=== PATIENT | female | born 1945 | race Caucasian/White ===

== ENCOUNTER 2017-10-26 14:46 | Inpatient (IN) | payer MEDICARE, OTHER ==
[2017-10-26] VITALS (7 sets, daily range): BP systolic 93–140; BP diastolic 50–64
[~2017-10-26] VITALS: Ht 152.4 cm; Wt 67.0 kg
[~2017-10-26 14:46] MED LIST: FURO40TA4 PO; GABA-530 PO; HYDR-565 PO; ONDA4TAB12 PO; PANT20TA3 PO; POLY119P2 PO; PROC-8 PO; SODI650T29 PO; atropine 0.1 mg/ml 5ml syringe ONE; calcium chloride 100 MG/1 ML inj IV ONE; naloxone 0.4 mg/ml inj ONE; sodium bicarbonate (8.4%) 1 mEq/ml syringe ONE
[2017-10-26] MEDS ORDERED: DOBUTamine-DoBUTrex 500mg/D5W 250 ML IV ONE (14:59)
[2017-10-26] MEDS ORDERED: levoFLOXACIN-Levaquin 750MG/D5 150 ML IV ONE (15:20)
[2017-10-26] MEDS ORDERED: CefTRIAXone 2gm/NS 100ml IVPB 100 ML IV ONE (15:20)
[2017-10-26] MEDS ORDERED: normal saline 1000ML IV soln IV ONE (15:20)
[2017-10-26 15:25] LABS: BASOPHILS % (AUTO) 0.2 % (0-1); EOSINOPHILS % (AUTO) 0.2 % (0-6); HEMATOCRIT 32.3 % (35.0-45.0); HEMOGLOBIN 10.4 g/dl (12.0-16.0); LYMPHOCYTES # (AUTO) 3.9 X10'3 (1.1-4.8); LYMPHOCYTES % (AUTO) 22.4 % (21-51); MEAN CORPUSCULAR HEMOGLOBIN 30.2 PG (27.0-31.0); MEAN CORPUSCULAR HGB CONC 32.2 % (33.0-36.5); MEAN CORPUSCULAR VOLUME 93.7 FL (78-98); MEAN PLATELET VOLUME 8.8 FL (7.4-10.4); MONOCYTES # (AUTO) 0.9 X10'3 (0-0.9); NEUTROPHILS # (AUTO) 12.5 X10'3 (1.8-7.7); NEUTROPHILS % (AUTO) 72.2 % (42-75); PLATELET COUNT 123 X10'3 (140-440); RED BLOOD COUNT 3.45 X10'6 (4.20-5.60); RED CELL DISTRIBUTION WIDTH 13.6 % (11.5-14.5); WHITE BLOOD COUNT 17.3 X10'3 (4.5-11.0)
[2017-10-26] MEDS ORDERED: midazolam 100mg in NS 100ml 100 ML IV PRN (15:30)
[2017-10-26] MEDS ORDERED: acetaminophen 325mg tablet PO PRN ×2 (15:30)
[2017-10-26] MEDS ORDERED: ipratropium/albuterol 3ml nebule NEB PRN (15:30)
[2017-10-26] MEDS ORDERED: midazolam 2 mg/2 ml injection IV ONE (15:30)
[2017-10-26] MEDS ORDERED: fentaNYL/PF 50MCG/1 ML 2ML syringe IV PRN (15:30)
[2017-10-26] MEDS ORDERED: CISatracurium besylate inj. 200 MG in normal saline 250ml IV soln 180 ML IV PRN (15:30)
[2017-10-26] MEDS ORDERED: ondansetron/PF 4mg/2ml inj IV PRN (15:30)
[2017-10-26] MEDS ORDERED: potassium Cl 40MEQ/250ML bag 250 ML IV PRN (15:30)
[2017-10-26] MEDS ORDERED: potassium Cl 20 mEq SR tablet PO PRN ×2 (15:30)
[2017-10-26] MEDS ORDERED: azithromycin/NS 500mg/250ml 250 ML IV SCH (15:30)
[2017-10-26] MEDS ORDERED: potassium Cl 40MEQ/NS 500ml 500 ML IV PRN ×2 (15:30)
[2017-10-26] MEDS ORDERED: FENTANYL-0.9 % NACL/PF 100 ML IV PRN (15:30)
[2017-10-26] MEDS ORDERED: CISatracurium **Bolus** 2 mg/ml inj IV PRN (15:30)
[2017-10-26 15:52] LABS: INR 1.2 INR; PARTIAL THROMBOPLASTIN TIME 52 SECONDS (22-32); PROTHROMBIN TIME 11.9 SECONDS (9.0-12.0)
[2017-10-26 15:56] LABS: ALANINE AMINOTRANSFERASE 214 U/L (12-78); ALBUMIN 2.1 G/DL (3.4-5.0); ALBUMIN/GLOBULIN RATIO 0.6 (1.1-1.5); ALKALINE PHOSPHATASE 94 IU/L (46-116); ANION GAP 11 (8-16); ASPARTATE AMINO TRANSFERASE 266 U/L (10-37); BILIRUBIN,TOTAL 0.4 MG/DL (0.1-1.0); BLOOD UREA NITROGEN 41 MG/DL (7-18); BUN/CREATININE RATIO 17.7 (6.6-38.0); CALCIUM 7.2 MG/DL (8.5-10.1); CHLORIDE 106 MMOL/L (99-107); CREATININE 2.32 MG/DL (0.40-0.90); GLUCOSE 243 MG/DL (70-104); POTASSIUM 5.2 MMOL/L (3.5-5.1); SODIUM 139 MMOL/L (135-145); TOTAL CARBON DIOXIDE 21.7 MMOL/L (24-32); TOTAL PROTEIN 5.9 G/DL (6.4-8.2); eGFR 21 ML/MIN
[2017-10-26 16:05] LABS: MAGNESIUM 2.1 MG/DL (1.5-2.4)
[2017-10-26] MEDS ORDERED: vancomycin/NS 1 GM ADD-VANTAGE 250 ML IV PRN (16:25)
[2017-10-26 16:30] LABS: ABG BASE EXCESS -12.8 mmol/L (-2.0-3.0); ABG HCO3 15.1 mmol/L (22.0-26.0); ABG PH (T) 7.153 (7.350-7.450); ABG PO2 (T) 323.2 mmHg (83-108); ALLEN'S TEST Positive; FCOHb 0.3 % (0.5-1.5); FMetHb 0.2 % (0.3-1.12); FO2Hb 98.5 % (94-100); TOTAL HEMOGLOBIN 7.7 G/dl (12.0-16.0)
[2017-10-26] MEDS ORDERED: vancomycin/NS 1 GM ADD-VANTAGE 250 ML IV ONE (16:50)
[2017-10-26] MEDS ORDERED: GABA100C PO (18:08)
[2017-10-26] MEDS ORDERED: PROC10TA PO (18:08)
[2017-10-26] MEDS ORDERED: POLY255P2 PO (18:08)
[2017-10-26] MEDS ORDERED: PANT20TA2 PO (18:08)
[2017-10-26] MEDS ORDERED: ONDA4TAB9 PO (18:08)
[2017-10-26] MEDS ORDERED: SODI325T PO (18:08)
[2017-10-26] MEDS: piperacillin-tazo 2.25gm/50ml 50 ML IV SCH ×2 (19:25→20:00)
[2017-10-26] MEDS: famotidine/PF 10 mg/ml inj IV SCH (19:25)
[2017-10-26] MEDS: normal saline 1000ml 1,000 ML IV SCH (19:25)
[2017-10-26] MEDS: lactobacillus rhamnosus 10,000 MMU CELLS/CAPSULE PO SCH (19:26)
[2017-10-26] MEDS: docusate sod 100mg capsule PO SCH (19:26)
[2017-10-26] MEDS: ipratropium/albuterol 3ml nebule NEB SCH ×2 (19:37→22:39)
[2017-10-26 20:25] LABS: ABG BASE EXCESS -9.9 mmol/L (-2.0-3.0); ABG HCO3 17.6 mmol/L (22.0-26.0); ABG OXYGEN SATURATION 97.2 % (95-98); ABG PCO2 (T) 37.7 mmHg (32.0-45.0); ABG PH (T) 7.263 (7.350-7.450); ABG PO2 (T) 86.3 mmHg (83-108); ALLEN'S TEST Positive; FCOHb 0.3 % (0.5-1.5); FMetHb 0.3 % (0.3-1.12); FO2Hb 96.6 % (94-100); MINUTE VOLUME 9 L/min; PATIENT TEMPERATURE 32.6; PEEP 5 cm H2O; RESPIRATORY RATE 20 b/min; RESPIRATORY RATE (OBSERVED) 22 b/min; TIDAL VOLUME 350 mL; TOTAL HEMOGLOBIN 10.6 G/dl (12.0-16.0)
[2017-10-26 20:31] LABS: OXYGEN SATURATION (MIXED VEN) 56.7 % (60-80)
[2017-10-26 20:44] LABS: ALBUMIN 2.1 G/DL (3.4-5.0); ANION GAP 11 (8-16); BLOOD UREA NITROGEN 41 MG/DL (7-18); CALCIUM 6.9 MG/DL (8.5-10.1); CHLORIDE 109 MMOL/L (99-107); CREATININE 1.86 MG/DL (0.40-0.90); GLUCOSE 146 MG/DL (70-104); MAGNESIUM 1.7 MG/DL (1.5-2.4); SODIUM 142 MMOL/L (135-145); TOTAL CARBON DIOXIDE 22.3 MMOL/L (24-32); eGFR 27 ML/MIN
[2017-10-26 20:58] LABS: TROPONIN I 0.31 NG/ML (0.0-0.05)
[2017-10-26] MEDS: DOBUTamine-DoBUTrex 500mg/D5W 250 ML IV PRN ×2 (23:28→23:56)
[2017-10-26] MEDS: NORepinephrine 8mg/ 250ml NS 250 ML IV SCH (23:46)
[2017-10-26] MEDS: mineral oil/petrolatum ophthal oint EACHEYE SCH (23:59)
[2017-10-27] VITALS (23 sets, daily range): BP systolic 81–160; BP diastolic 43–64
[2017-10-27 00:15] LABS: CLARITY,URINE CLEAR (Clear); COLOR,URINE YELLOW (Yellow); GLUCOSE, URINE NEGATIVE (Neg); KETONES,URINE NEGATIVE (Neg); LEUKOCYTE ESTERASE ,URINE NEGATIVE (Neg); NITRITES, URINE NEGATIVE (Neg); OCCULT BLOOD,URINE LARGE (Neg); PH,URINE 6.5 (4.8-8.0); PROTEIN,URINE 100 mg/dl (Neg); UROBILINOGEN,URINE 0.2 E.U/dL (0.2-1.0)
[2017-10-27 00:30] LABS: UA COLLECTION TYPE VOIDED
[2017-10-27 00:33] LABS: WBC,URINE 0-4 /HPF (0-4)
[2017-10-27 00:34] LABS: BACTERIA,URINE NONE SEEN /HPF (Neg); MUCUS STRANDS NONE SEEN /LPF (Neg); SQUAMOUS EPITHELIAL CELL,UR MANY /LPF (FEW); TRANSITIONAL EPI CELLS,URINE FEW /HPF
[2017-10-27] MEDS: piperacillin-tazo 2.25gm/50ml 50 ML IV SCH ×4 (02:47→19:58)
[2017-10-27] MEDS: VANCOMYCIN LEVEL IV SCH (03:00)
[2017-10-27] MEDS: ipratropium/albuterol 3ml nebule NEB SCH ×6 (03:17→23:05)
[2017-10-27 03:35] LABS: ABG BASE EXCESS -8.2 mmol/L (-2.0-3.0); ABG HCO3 17.1 mmol/L (22.0-26.0); ABG OXYGEN SATURATION 98.9 % (95-98); ABG PCO2 (T) 28.3 mmHg (32.0-45.0); ABG PH (T) 7.378 (7.350-7.450); ABG PO2 (T) 152.9 mmHg (83-108); ALLEN'S TEST Positive; FCOHb 0.3 % (0.5-1.5); FO2Hb 98.6 % (94-100); MINUTE VOLUME 8 L/min; PATIENT TEMPERATURE 32.5; PEEP 5 cm H2O; RESPIRATORY RATE 20 b/min; RESPIRATORY RATE (OBSERVED) 20 b/min; TIDAL VOLUME 350 mL; TOTAL HEMOGLOBIN 10.9 G/dl (12.0-16.0)
[2017-10-27 03:35] LABS: OXYGEN SATURATION (MIXED VEN) 75.7 % (60-80); PO2 MIXED VENOUS (TEMP COR) 29.7 mmHg (35-46)
[2017-10-27 03:46] LABS: BASOPHILS % (AUTO) 0 % (0-1); HEMATOCRIT 30.4 % (35.0-45.0); HEMOGLOBIN 10.2 g/dl (12.0-16.0); LYMPHOCYTES # (AUTO) 0.5 X10'3 (1.1-4.8); MEAN CORPUSCULAR HEMOGLOBIN 30.3 PG (27.0-31.0); MEAN CORPUSCULAR HGB CONC 33.4 % (33.0-36.5); MEAN CORPUSCULAR VOLUME 90.7 FL (78-98); MEAN PLATELET VOLUME 7.5 FL (7.4-10.4)
[2017-10-27 03:50] LABS: ALANINE AMINOTRANSFERASE 242 U/L (12-78); ALBUMIN 2.1 G/DL (3.4-5.0); ALBUMIN/GLOBULIN RATIO 0.6 (1.1-1.5); ALKALINE PHOSPHATASE 77 IU/L (46-116); ANION GAP 11 (8-16); ASPARTATE AMINO TRANSFERASE 539 U/L (10-37); BILIRUBIN,TOTAL 0.4 MG/DL (0.1-1.0); BLOOD UREA NITROGEN 44 MG/DL (7-18); BUN/CREATININE RATIO 25.7 (6.6-38.0); CALCIUM 7.2 MG/DL (8.5-10.1); CHLORIDE 112 MMOL/L (99-107); CREATININE 1.71 MG/DL (0.40-0.90); GLUCOSE 128 MG/DL (70-104); MAGNESIUM 1.7 MG/DL (1.5-2.4); PHOSPHORUS 4.4 MG/DL (2.3-4.5); POTASSIUM 3.3 MMOL/L (3.5-5.1); SODIUM 144 MMOL/L (135-145); TOTAL CARBON DIOXIDE 20.6 MMOL/L (24-32); TOTAL PROTEIN 5.8 G/DL (6.4-8.2); eGFR 29 ML/MIN
[2017-10-27 03:51] LABS: EOSINOPHILS % (AUTO) 0 % (0-6); LYMPHOCYTES % (AUTO) 2.9 % (21-51); MONOCYTES # (AUTO) 0.2 X10'3 (0-0.9); MONOCYTES % (AUTO) 1.1 % (2-12); NEUTROPHILS # (AUTO) 15.4 X10'3 (1.8-7.7); PLATELET COUNT 61 X10'3 (140-440); RED BLOOD COUNT 3.35 X10'6 (4.20-5.60); RED CELL DISTRIBUTION WIDTH 13.6 % (11.5-14.5)
[2017-10-27] MEDS ORDERED: potassium Cl 40MEQ/250ML bag 250 ML IV ONE (04:00)
[2017-10-27] MEDS: mineral oil/petrolatum ophthal oint EACHEYE SCH ×5 (04:08→19:58)
[2017-10-27] MEDS: potassium Cl 40MEQ/250ML bag 250 ML IV PRN (04:12)
[2017-10-27] MEDS: normal saline 1000ml 1,000 ML IV SCH ×2 (04:50→18:30)
[2017-10-27] MEDS: lactobacillus rhamnosus 10,000 MMU CELLS/CAPSULE PO SCH ×2 (07:50→18:00)
[2017-10-27] MEDS: famotidine/PF 10 mg/ml inj IV SCH ×2 (07:50→19:58)
[2017-10-27] MEDS: enoxaparin 40mg/0.4ml syringe SUBCUT SCH (07:51)
[2017-10-27] MEDS: docusate sod 100mg capsule PO SCH ×2 (07:52→19:58)
[2017-10-27] MEDS ORDERED: cefTRIAXone 1g/NS 100ml IVPB 100 ML IV SCH (08:00)
[2017-10-27] MEDS ORDERED: levoFLOXACIN-Levaquin 750MG/D5 150 ML IV SCH (08:00)
[2017-10-27 08:02] LABS: INR 1.3 INR; PARTIAL THROMBOPLASTIN TIME 44 SECONDS (22-32); PROTHROMBIN TIME 13.3 SECONDS (9.0-12.0)
[2017-10-27 08:10] LABS: ALBUMIN 1.9 G/DL (3.4-5.0); ANION GAP 11 (8-16); BLOOD UREA NITROGEN 41 MG/DL (7-18); BUN/CREATININE RATIO 25.9 (6.6-38.0); CALCIUM 6.8 MG/DL (8.5-10.1); CHLORIDE 115 MMOL/L (99-107); CREATININE 1.58 MG/DL (0.40-0.90); GLUCOSE 151 MG/DL (70-104); MAGNESIUM 1.6 MG/DL (1.5-2.4); SODIUM 145 MMOL/L (135-145); TOTAL CARBON DIOXIDE 19.5 MMOL/L (24-32); eGFR 32 ML/MIN
[2017-10-27 08:26] LABS: TROPONIN I 0.38 NG/ML (0.0-0.05)
[2017-10-27 09:29] LABS: PLATELET ESTIMATE DECREASED; TOTAL CELLS COUNTED 100
[2017-10-27 09:41] LABS: C DIFF ANTIGEN NEGATIVE (NEGATIVE); C DIFF SPECIMEN=DIARRHEA? ACCEPTABLE; C DIFFICILE TOXINS A&B NEGATIVE (Neg)
[2017-10-27 10:46] LABS: OXYGEN SATURATION (MIXED VEN) 67.1 % (60-80); PO2 MIXED VENOUS (TEMP COR) 24.7 mmHg (35-46)
[2017-10-27 10:55] LABS: ABG BASE EXCESS -9.9 mmol/L (-2.0-3.0); ABG OXYGEN SATURATION 95.9 % (95-98); ABG PO2 (T) 59.2 mmHg (83-108); FCOHb 0.3 % (0.5-1.5); FMetHb 0.3 % (0.3-1.12); FO2Hb 95.3 % (94-100); MINUTE VOLUME 7 L/min; PATIENT TEMPERATURE 32.2; PEEP 5 cm H2O; RESPIRATORY RATE 20 b/min; RESPIRATORY RATE (OBSERVED) 19 b/min; TIDAL VOLUME 350 mL; TOTAL HEMOGLOBIN 10.8 G/dl (12.0-16.0)
[2017-10-27] MEDS ORDERED: DOBUTamine-DoBUTrex 500mg/D5W 250 ML IV PRN (11:00)
[2017-10-27 11:05] LABS: CLARITY,URINE CLEAR (Clear); COLOR,URINE YELLOW (Yellow); GLUCOSE, URINE NEGATIVE (Neg); KETONES,URINE NEGATIVE (Neg); LEUKOCYTE ESTERASE ,URINE NEGATIVE (Neg); NITRITES, URINE NEGATIVE (Neg); OCCULT BLOOD,URINE LARGE (Neg); PROTEIN,URINE 30 mg/dl (Neg); UROBILINOGEN,URINE 0.2 E.U/dL (0.2-1.0)
[2017-10-27 11:09] LABS: UA COLLECTION TYPE FOLEY CATH
[2017-10-27 11:14] LABS: WBC,URINE 0-4 /HPF (0-4)
[2017-10-27 11:15] LABS: BACTERIA,URINE FEW /HPF (Neg); SQUAMOUS EPITHELIAL CELL,UR FEW /LPF (FEW)
[2017-10-27 11:37] LABS: UA EOSINOPHILS NO EOS /HPF
[2017-10-27 15:07] LABS: ALBUMIN 1.9 G/DL (3.4-5.0); ANION GAP 11 (8-16); BLOOD UREA NITROGEN 41 MG/DL (7-18); BUN/CREATININE RATIO 24.8 (6.6-38.0); CHLORIDE 115 MMOL/L (99-107); CREATININE 1.65 MG/DL (0.40-0.90); GLUCOSE 149 MG/DL (70-104); MAGNESIUM 1.7 MG/DL (1.5-2.4); POTASSIUM 3.6 MMOL/L (3.5-5.1); SODIUM 145 MMOL/L (135-145); TOTAL CARBON DIOXIDE 19.4 MMOL/L (24-32); eGFR 31 ML/MIN
[2017-10-27] MEDS: oseltamivir phos 75mg capsule PO SCH ×2 (15:53→23:19)
[2017-10-27 16:21] LABS: ABG BASE EXCESS -9.4 mmol/L (-2.0-3.0); ABG HCO3 15.6 mmol/L (22.0-26.0); ABG OXYGEN SATURATION 93.6 % (95-98); ABG PCO2 (T) 26.1 mmHg (32.0-45.0); ABG PH (T) 7.374 (7.350-7.450); ABG PO2 (T) 50.9 mmHg (83-108); FCOHb 0.4 % (0.5-1.5); FMetHb 0.3 % (0.3-1.12); FO2Hb 92.9 % (94-100); MINUTE VOLUME 7 L/min; PATIENT TEMPERATURE 32.6; PEEP 5 cm H2O; RESPIRATORY RATE 20 b/min; RESPIRATORY RATE (OBSERVED) 19 b/min; TIDAL VOLUME 350 mL
[2017-10-27 16:21] LABS: OXYGEN SATURATION (MIXED VEN) 70.6 % (60-80); PO2 MIXED VENOUS (TEMP COR) 26.1 mmHg (35-46)
[2017-10-27] MEDS ORDERED: mineral oil/petrolatum ophthal oint EACHEYE SCH (20:00)
[2017-10-27 23:06] LABS: ABG BASE EXCESS -9.7 mmol/L (-2.0-3.0); ABG HCO3 15.4 mmol/L (22.0-26.0); ABG OXYGEN SATURATION 95.1 % (95-98); ABG PCO2 (T) 26.5 mmHg (32.0-45.0); ABG PH (T) 7.364 (7.350-7.450); ABG PO2 (T) 63.3 mmHg (83-108); FCOHb 0.3 % (0.5-1.5); FO2Hb 94.8 % (94-100); MINUTE VOLUME 9 L/min; PATIENT TEMPERATURE 33.4; PEEP 5 cm H2O; RESPIRATORY RATE 20 b/min; RESPIRATORY RATE (OBSERVED) 20 b/min; TIDAL VOLUME 350 mL; TOTAL HEMOGLOBIN 11.2 G/dl (12.0-16.0)
[2017-10-28] VITALS (24 sets, daily range): BP systolic 95–130; BP diastolic 37–51
[2017-10-28] MEDS: mineral oil/petrolatum ophthal oint EACHEYE SCH ×6 (00:16→20:33)
[2017-10-28] MEDS: NORepinephrine 8mg/ 250ml NS 250 ML IV SCH ×2 (01:46→15:12)
[2017-10-28] MEDS: piperacillin-tazo 2.25gm/50ml 50 ML IV SCH ×4 (01:53→20:34)
[2017-10-28 02:34] LABS: BASOPHILS % (AUTO) 0 % (0-1); EOSINOPHILS % (AUTO) 0 % (0-6); HEMATOCRIT 27.9 % (35.0-45.0); HEMOGLOBIN 9.2 g/dl (12.0-16.0); LYMPHOCYTES # (AUTO) 0.6 X10'3 (1.1-4.8); LYMPHOCYTES % (AUTO) 3.5 % (21-51); MEAN CORPUSCULAR HEMOGLOBIN 30.1 PG (27.0-31.0); MEAN CORPUSCULAR HGB CONC 32.9 % (33.0-36.5); MEAN CORPUSCULAR VOLUME 91.5 FL (78-98); MEAN PLATELET VOLUME 8.7 FL (7.4-10.4); MONOCYTES # (AUTO) 0.1 X10'3 (0-0.9); MONOCYTES % (AUTO) 0.4 % (2-12); NEUTROPHILS # (AUTO) 16.9 X10'3 (1.8-7.7); NEUTROPHILS % (AUTO) 96.1 % (42-75); RED BLOOD COUNT 3.05 X10'6 (4.20-5.60); RED CELL DISTRIBUTION WIDTH 13.7 % (11.5-14.5); WHITE BLOOD COUNT 17.6 X10'3 (4.5-11.0)
[2017-10-28 02:48] LABS: PLATELET COUNT 46 X10'3 (140-440)
[2017-10-28 02:50] LABS: ALANINE AMINOTRANSFERASE 167 U/L (12-78); ALBUMIN 1.7 G/DL (3.4-5.0); ALBUMIN/GLOBULIN RATIO 0.5 (1.1-1.5); ALKALINE PHOSPHATASE 49 IU/L (46-116); ANION GAP 14 (8-16); ASPARTATE AMINO TRANSFERASE 222 U/L (10-37); BILIRUBIN,TOTAL 0.5 MG/DL (0.1-1.0); BLOOD UREA NITROGEN 40 MG/DL (7-18); BUN/CREATININE RATIO 23.7 (6.6-38.0); CALCIUM 7.1 MG/DL (8.5-10.1); CHLORIDE 116 MMOL/L (99-107); CREATININE 1.69 MG/DL (0.40-0.90); GLUCOSE 165 MG/DL (70-104); MAGNESIUM 1.6 MG/DL (1.5-2.4); POTASSIUM 3.4 MMOL/L (3.5-5.1); SODIUM 147 MMOL/L (135-145); TOTAL CARBON DIOXIDE 17.5 MMOL/L (24-32); TOTAL PROTEIN 5.3 G/DL (6.4-8.2); eGFR 30 ML/MIN
[2017-10-28] MEDS: VANCOMYCIN LEVEL IV SCH (03:00)
[2017-10-28] MEDS: ipratropium/albuterol 3ml nebule NEB SCH ×6 (03:36→23:08)
[2017-10-28 04:26] LABS: ABG BASE EXCESS -9.8 mmol/L (-2.0-3.0); ABG HCO3 15.5 mmol/L (22.0-26.0); ABG OXYGEN SATURATION 95.8 % (95-98); ABG PCO2 (T) 28.1 mmHg (32.0-45.0); ABG PH (T) 7.345 (7.350-7.450); ABG PO2 (T) 69.5 mmHg (83-108); FCOHb 0.3 % (0.5-1.5); FMetHb 0.3 % (0.3-1.12); FO2Hb 95.2 % (94-100); MINUTE VOLUME 9 L/min; PATIENT TEMPERATURE 33.9; PEEP 5 cm H2O; RESPIRATORY RATE 20 b/min; RESPIRATORY RATE (OBSERVED) 20 b/min; TIDAL VOLUME 350 mL; TOTAL HEMOGLOBIN 10.1 G/dl (12.0-16.0)
[2017-10-28 05:02] LABS: TROPONIN I 0.15 NG/ML (0.0-0.05)
[2017-10-28] MEDS: enoxaparin 40mg/0.4ml syringe SUBCUT SCH (08:00)
[2017-10-28] MEDS: normal saline 1000ml 1,000 ML IV SCH ×2 (08:04→22:45)
[2017-10-28] MEDS: lactobacillus rhamnosus 10,000 MMU CELLS/CAPSULE PO SCH ×2 (08:04→17:02)
[2017-10-28] MEDS: docusate sodium 100mg/10ml UD cup PO SCH ×2 (08:04→20:34)
[2017-10-28] MEDS: famotidine/PF 10 mg/ml inj IV SCH ×2 (08:04→20:34)
[2017-10-28] MEDS: oseltamivir phos 75mg capsule PO SCH ×2 (09:47→20:34)
[2017-10-28 10:01] LABS: PLATELET ESTIMATE DECREASED; TOTAL CELLS COUNTED 100
[2017-10-28] MEDS ORDERED: DOBUTamine-DoBUTrex 500mg/D5W 250 ML IV SCH (10:35)
[2017-10-28 10:47] LABS: HEMATOCRIT 28.7 % (35.0-45.0); HEMOGLOBIN 9.5 g/dl (12.0-16.0); MEAN CORPUSCULAR HEMOGLOBIN 30.3 PG (27.0-31.0); MEAN CORPUSCULAR VOLUME 91.9 FL (78-98); MEAN PLATELET VOLUME 8.2 FL (7.4-10.4); RED BLOOD COUNT 3.12 X10'6 (4.20-5.60); WHITE BLOOD COUNT 21.4 X10'3 (4.5-11.0)
[2017-10-28 11:01] LABS: PLATELET COUNT 39 X10'3 (140-440)
[2017-10-29] VITALS (16 sets, daily range): BP systolic 84–140; BP diastolic 32–57
[2017-10-29] MEDS: mineral oil/petrolatum ophthal oint EACHEYE SCH ×4 (01:25→14:26)
[2017-10-29] MEDS: piperacillin-tazo 2.25gm/50ml 50 ML IV SCH ×3 (01:56→14:26)
[2017-10-29] MEDS: NORepinephrine 8mg/ 250ml NS 250 ML IV SCH ×2 (02:09→11:22)
[2017-10-29 02:53] LABS: BASOPHILS % (AUTO) 0 % (0-1); EOSINOPHILS % (AUTO) 0.1 % (0-6); HEMATOCRIT 26.8 % (35.0-45.0); LYMPHOCYTES # (AUTO) 0.9 X10'3 (1.1-4.8); LYMPHOCYTES % (AUTO) 3.7 % (21-51); MEAN CORPUSCULAR HEMOGLOBIN 30.7 PG (27.0-31.0); MEAN CORPUSCULAR HGB CONC 33.7 % (33.0-36.5); MEAN CORPUSCULAR VOLUME 91.3 FL (78-98); MEAN PLATELET VOLUME 10.1 FL (7.4-10.4); MONOCYTES # (AUTO) 0.4 X10'3 (0-0.9); MONOCYTES % (AUTO) 1.7 % (2-12); NEUTROPHILS # (AUTO) 23.1 X10'3 (1.8-7.7); NEUTROPHILS % (AUTO) 94.5 % (42-75); RED BLOOD COUNT 2.94 X10'6 (4.20-5.60); RED CELL DISTRIBUTION WIDTH 14.4 % (11.5-14.5); WHITE BLOOD COUNT 24.4 X10'3 (4.5-11.0)
[2017-10-29 02:56] LABS: PLATELET COUNT 33 X10'3 (140-440)
[2017-10-29] MEDS: VANCOMYCIN LEVEL IV SCH (03:00)
[2017-10-29 03:06] LABS: ALANINE AMINOTRANSFERASE 112 U/L (12-78); ALBUMIN 1.5 G/DL (3.4-5.0); ALBUMIN/GLOBULIN RATIO 0.4 (1.1-1.5); ALKALINE PHOSPHATASE 49 IU/L (46-116); ANION GAP 16 (8-16); ASPARTATE AMINO TRANSFERASE 122 U/L (10-37); BILIRUBIN,TOTAL 0.5 MG/DL (0.1-1.0); BLOOD UREA NITROGEN 38 MG/DL (7-18); BUN/CREATININE RATIO 18.2 (6.6-38.0); CALCIUM 7.4 MG/DL (8.5-10.1); CHLORIDE 115 MMOL/L (99-107); CREATININE 2.09 MG/DL (0.40-0.90); GLUCOSE 161 MG/DL (70-104); MAGNESIUM 1.4 MG/DL (1.5-2.4); PHOSPHORUS 3.5 MG/DL (2.3-4.5); POTASSIUM 3.4 MMOL/L (3.5-5.1); SODIUM 148 MMOL/L (135-145); TOTAL CARBON DIOXIDE 17.1 MMOL/L (24-32); TOTAL PROTEIN 5.2 G/DL (6.4-8.2); eGFR 23 ML/MIN
[2017-10-29] MEDS: ipratropium/albuterol 3ml nebule NEB SCH ×4 (03:22→15:00)
[2017-10-29 03:31] LABS: ABG BASE EXCESS -11.6 mmol/L (-2.0-3.0); ABG OXYGEN SATURATION 93.3 % (95-98); ABG PCO2 (T) 36.3 mmHg (32.0-45.0); ABG PH (T) 7.233 (7.350-7.450); ABG PO2 (T) 72.2 mmHg (83-108); ALLEN'S TEST Positive; FCOHb 0.3 % (0.5-1.5); MINUTE VOLUME 8 L/min; PEEP 5 cm H2O; RESPIRATORY RATE 20 b/min; RESPIRATORY RATE (OBSERVED) 20 b/min; TIDAL VOLUME 350 mL; TOTAL HEMOGLOBIN 12.2 G/dl (12.0-16.0)
[2017-10-29] MEDS ORDERED: potassium Cl 40MEQ/250ML bag 250 ML IV ONE (04:35)
[2017-10-29] MEDS: potassium Cl 40MEQ/250ML bag 250 ML IV PRN (04:47)
[2017-10-29] MEDS: docusate sodium 100mg/10ml UD cup PO SCH (08:00)
[2017-10-29] MEDS: enoxaparin 40mg/0.4ml syringe SUBCUT SCH (08:00)
[2017-10-29] MEDS: oseltamivir phos 75mg capsule PO SCH (08:19)
[2017-10-29] MEDS: famotidine/PF 10 mg/ml inj IV SCH (08:20)
[2017-10-29] MEDS: lactobacillus rhamnosus 10,000 MMU CELLS/CAPSULE PO SCH (08:20)
[2017-10-29 08:21] LABS: TOTAL CELLS COUNTED 100
[2017-10-29 08:29] LABS: ANISOCYTOSIS 1+; PLATELET ESTIMATE DECREASED; POIKILOCYTOSIS 1+
[2017-10-29 08:30] LABS: BURR CELLS 1+
[2017-10-29] MEDS: normal saline 1000ml 1,000 ML IV SCH (08:54)
[2017-10-29 11:21] LABS: ABG BASE EXCESS -11.8 mmol/L (-2.0-3.0); ABG HCO3 14.4 mmol/L (22.0-26.0); ABG PCO2 (T) 34.1 mmHg (32.0-45.0); ABG PH (T) 7.244 (7.350-7.450); FCOHb 0.3 % (0.5-1.5); FMetHb 0.3 % (0.3-1.12); FO2Hb 95.4 % (94-100); MINUTE VOLUME 6 L/min; PATIENT TEMPERATURE 37.2; PEEP 5 cm H2O; RESPIRATORY RATE 20 b/min; RESPIRATORY RATE (OBSERVED) 19 b/min; TIDAL VOLUME 350 mL; TOTAL HEMOGLOBIN 9.9 G/dl (12.0-16.0)
[2017-10-29 11:40] LABS: ABG BASE EXCESS -11.9 mmol/L (-2.0-3.0); ABG HCO3 14.1 mmol/L (22.0-26.0); ABG OXYGEN SATURATION 99.3 % (95-98); ABG PCO2 (T) 32.7 mmHg (32.0-45.0); ABG PH (T) 7.253 (7.350-7.450); ABG PO2 (T) 342.8 mmHg (83-108); FCOHb 0.3 % (0.5-1.5); FMetHb 0.3 % (0.3-1.12); FO2Hb 98.7 % (94-100); MINUTE VOLUME 7 L/min; PATIENT TEMPERATURE 37.3; PEEP 5 cm H2O; RESPIRATORY RATE 20 b/min; RESPIRATORY RATE (OBSERVED) 20 b/min; TIDAL VOLUME 350 mL; TOTAL HEMOGLOBIN 9.8 G/dl (12.0-16.0)
[2017-10-29 14:55] LABS: ABG BASE EXCESS -12.2 mmol/L (-2.0-3.0); ABG HCO3 17.4 mmol/L (22.0-26.0); ABG OXYGEN SATURATION 71.1 % (95-98); ABG PCO2 (T) 59.6 mmHg (32.0-45.0); ABG PH (T) 7.085 (7.350-7.450); ABG PO2 (T) 44.5 mmHg (83-108); FCOHb 0.1 % (0.5-1.5); FLOW 10 L/min; FMetHb 0.3 % (0.3-1.12); FO2Hb 70.8 % (94-100); PATIENT TEMPERATURE 37.3; TOTAL HEMOGLOBIN 9.8 G/dl (12.0-16.0)
[2017-10-30 05:35] LABS: ABG BASE EXCESS -12.2 mmol/L (-2.0-3.0); ABG HCO3 17.4 mmol/L (22.0-26.0); ABG OXYGEN SATURATION 71.1 % (95-98); ABG PCO2 (T) 59.6 mmHg (32.0-45.0); ABG PH (T) 7.085 (7.350-7.450); ABG PO2 (T) 44.5 mmHg (83-108); FCOHb 0.1 % (0.5-1.5); FLOW 10 L/min; FMetHb 0.3 % (0.3-1.12); FO2Hb 70.8 % (94-100); PATIENT TEMPERATURE 37.3; TOTAL HEMOGLOBIN 9.8 G/dl (12.0-16.0)
== END 2017-10-29 16:00 | disposition expired | DRG 871 ==
LOC: ER 14:46 → ICU 2S 15:40
PROVIDERS: ADMIT Internal Medicine Critical Care Medicine; ATTEND Internal Medicine Critical Care Medicine
PROC: 06HM33Z Insertion of Infusion Device into Right Femoral Vein, Percutaneous Approach (ICD-10-PCS; principal; 2017-10-26)
PROC: 5A1945Z Respiratory Ventilation, 24-96 Consecutive Hours (ICD-10-PCS; 2017-10-26)
PROC: 5A12012 Performance of Cardiac Output, Single, Manual (ICD-10-PCS; 2017-10-26)
PROC: B54BZZA Ultrasonography of Right Lower Extremity Veins, Guidance (ICD-10-PCS; 2017-10-26)
DX: A41.9 Sepsis, unspecified organism (principal); J96.00 Acute respiratory failure, unspecified whether with hypoxia or hypercapnia; R57.0 Cardiogenic shock; G93.1 Anoxic brain damage, not elsewhere classified; J18.9 Pneumonia, unspecified organism; J10.00 Influenza due to other identified influenza virus with unspecified type of pneumonia; N18.3 Chronic kidney disease, stage 3 (moderate); E11.22 Type 2 diabetes mellitus with diabetic chronic kidney disease; I48.2 Chronic atrial fibrillation; G89.4 Chronic pain syndrome; T68.XXXA Hypothermia, initial encounter; Z51.5 Encounter for palliative care; Z66 Do not resuscitate; Z90.49 Acquired absence of other specified parts of digestive tract; Z88.6 Allergy status to analgesic agent; Z88.2 Allergy status to sulfonamides; Z79.899 Other long term (current) drug therapy; Z87.440 Personal history of urinary (tract) infections; Y92.009 Unspecified place in unspecified non-institutional (private) residence as the place of occurrence of the external cause; Z85.3 Personal history of malignant neoplasm of breast
CPT/HCPCS: 36415; 36556; 36600; 71010; 71045; 80048; 80053; 80202; 81001; 81003; 82570; 82803; 82810; 82948; 83605; 83735; 83880; 84100; 84145; 84300; 84484; 85018; 85025; 85027; 85610; 85730; 87040; 87045; 87046; 87070; 87077; 87186; 87207; 87324; 87449; 87502; 87503; 93005; 93306; 94002; 94003; 94640; 94760; 96365; 96366; 99291; A6213; A7015; C1751; C1758; J0461; J1250; J1650; J1956; J2250; J2310; J2543; J3370; J3480; J3490; J7030